=== PATIENT | female | born 1960 | race Caucasian/White ===

== ENCOUNTER 2019-01-26 05:41 | Day surgery (SDC) | payer BC ==
[2019-01-25 15:35] VITALS: BMI 24.7
[2019-01-26] MEDS ORDERED: MIDAZOLAM HCL 2 MG/2 ML SINGLE DOSE VIAL ONE (06:48)
[2019-01-26] MEDS ORDERED: PROPOFOL 20 ML ONE ×2 (06:48)
[2019-01-26] MEDS ORDERED: ERYTHROMYCIN 0.5% OPHTHALMIC OINTMENT 3.5 GM TUBE ONE (07:16)
[2019-01-26] MEDS ORDERED: TETRACAINE 0.5% OPHTH SOLN 2 ML BOTTLE ONE (07:17)
[2019-01-26] MEDS ORDERED: BUPIVACAINE HCL/PF 0.5% (5MG/ML) 10 ML VIAL ONE (07:17)
[2019-01-26] MEDS ORDERED: LIDOCAINE 1%/EPI 1:100000 (20 ML MULTI DOSE VIAL) ONE (07:17)
[2019-01-26] MEDS ORDERED: POVIDONE-IODINE 5% OPHTHALMIC PREP 30 ML SOLUTION ONE (07:17)
[2019-01-26] MEDS ORDERED: ONDANSETRON 4 MG/2 ML VIAL IVPUSH PRN (07:43)
[2019-01-26] MEDS ORDERED: oxyCODONE HCL 5 MG TABLET PO PRN (07:43)
[2019-01-26] MEDS ORDERED: LACTATED RINGERS SOLUTION 1,000 ML IV SCH (07:45)
[2019-01-26] MEDS ORDERED: DEXAMETHASONE SOD PHOSPHATE 4 MG/1 ML VIAL ONE (08:26)
[2019-01-26 09:49] VITALS: TEMP 98.1
[2019-01-26] MEDS ORDERED: ceFAZolin SODIUM 1 GM VIAL ONE (10:28)
[2019-01-26 11:38] VITALS: BP 121/72; PULSE 54
--- NOTE | 2019-01-26 19:38 | OP ---
DATE OF OPERATION: 01/26/2019 PREOPERATIVE DIAGNOSIS: Large defect, left lower lid, status post excision of basal cell carcinoma measuring 23 mm in width. POSTOPERATIVE DIAGNOSIS: Large defect, left lower lid, status post excision of basal cell carcinoma measuring 23 mm in width. PROCEDURE: 1. Debridement of tailoring defect, left lower lid. 2. Myocutaneous flap in a rhomboid configuration from the left cheek and lateral left lower lid to the defect and also skin and muscle flap advancement from the lateral canthus to the left lower lid in 4-0 suture. SURGEON: Sj Reeves MD ANESTHESIA: General. COMPLICATIONS: None. ESTIMATED BLOOD LOSS: 5 to 10 mL. OPERATIVE REPORT: The patient was brought to the operating room, placed in the operating room table, vital signs were monitored by anesthesia. She was given intravenous sedation. Tetracaine was placed in both eyes. The bandage over the left eye was removed and the wound was examined and photographed. It was measured at 22 to 23 mm in width and approximately 10 mm in vertical height, making it impossible to repair with just vertical advancement and closure of the defect. Therefore, a myocutaneous flap was marked out in the lower lid and cheek laterally and after timeout was performed, a 50/50 mixture of 2% Xylocaine and 1:100,000 epinephrine and 0.5% Marcaine was injected subcutaneously in the left lower lid and throughout the left cheek, for a total of 8 mL. Massage was applied for hemostasis. The patient was prepped and draped in the usual sterile fashion, exposing both eyes. She was not breathing well with the intravenous sedation; therefore, her anesthesiologist changed it to an LMA. She was then prepped and draped in the usual sterile fashion. The previously-marked myocutaneous flap was incised through the skin and muscle layer, and then a skin and partial myocutaneous flap was elevated and undermining of the cheek was carried out laterally to allow for rotation and advancement nasally and closure of the donor site. It should be noted that with simple rotation of the rhomboid flap, there appeared to be too much infratemporal tension on the nasal portion of the eyelid and risk of ectropion down the road, therefore, the rhomboid was converted from a rhomboid to a horizontal advancement flap as well, and the superior edge of the incision or defect was extended laterally out to the lateral canthus and elevated as a myocutaneous flap, and this allowed closure of the rhomboid defect as well as advancement horizontally of the myocutaneous flap without any vertical tension on the eyelid. Hemostasis was achieved with a [place] needle, and antibiotic irrigation was used throughout the case. The donor site was closed with buried 3-0 and 4-0 chromic sutures. After the extension of the lid crease incision out to the lateral canthus, the skin muscle flap was advanced and was closed at its apex with a buried 5-0 chromic suture. Additional 5-0 chromic sutures were used along the superior edge of the defect, tailoring skin as needed and removing a standing cutaneous deformity at the lateral end, and additional 5-0 chromics were used at the inferior edge of the flap, and this resulted in complete closure of the flap. The skin itself was then closed with running 5-0 plain suture along its vertical arm and nasal arm obliquely, and the subciliary incision was closed with running 6-0 plain suture in plastic technique. A double-armed 4-0 silk was passed through a number 8 [place] red rubber catheter, passed through the apex of the flap and the lid margin nasally just lateral to the punctum in a double-armed fashion, and this was secured to the forehead with Mastisol to place the lid on gentle stretch during the early healing phase. Erythromycin ointment was placed in the eye and on the sutures, and the patient was taken to recovery room in stable condition. SJ REEVES M.D. MARIA GUADALUPE/[id number]
== END 2019-01-26 11:30 | disposition home or self-care (01) ==
LOC: FASU 05:41
PROVIDERS: ATTEND Ophthalmology
PROC: 0HX1XZZ Transfer Face Skin, External Approach (ICD-10-PCS; principal; 2019-01-26 08:20)
DX: C44.1192 Basal cell carcinoma of skin of left lower eyelid, including canthus (principal); H02.89 Other specified disorders of eyelid
CPT/HCPCS: 94760